=== PATIENT | male | born 1995 | race Caucasian/White ===

== ENCOUNTER 2017-01-06 22:50 | Emergency (ER) | payer BC ==
[~2017-01-06] VITALS: Ht 190.5 cm; Wt 90.9 kg
[2017-01-06 22:52] VITALS: TEMP 98.4
[2017-01-06 23:37] LABS: AMPHETAMINE URINE NEGATIVE; BARBITURATES URINE NEGATIVE; BENZODIAZEPINES URINE NEGATIVE; BUPRENORPHINE URINE NEGATIVE; METHADONE URINE NEGATIVE; OPIATES URINE NEGATIVE; OXYCODONE URINE NEGATIVE; PHENCYCLIDINE URINE NEGATIVE; PROPOXYPHENE URINE NEGATIVE; THC CANNABINOIDS URINE NEGATIVE
[2017-01-07 00:04] VITALS: BP 170/75; PULSE 102
== END 2017-01-07 00:05 | disposition home or self-care (01) ==
LOC: COL.ER 22:50
PROVIDERS: Nurse Practitioner
DX: Z04.1 Encounter for examination and observation following transport accident (principal); Z02.89 Encounter for other administrative examinations; V49.88XA Car occupant (driver) (passenger) injured in other specified transport accidents, initial encounter